=== PATIENT | female | born 1970 | race Caucasian/White ===

== ENCOUNTER 2018-05-19 20:37 | Emergency (ER) | payer OTHER ==
[~2018-05-19] VITALS: Ht 165.1 cm; Wt 68.2 kg
[~2018-05-19 20:37] MED LIST: htn med PO; norco PO; tramadol PO
[2018-05-19] MEDS ORDERED: IBUP-2070 PO (21:09)
[2018-05-19] MEDS ORDERED: GABA-531 PO (21:19)
[2018-05-19] MEDS ORDERED: HYDR25TA PO (21:19)
[2018-05-19] MEDS ORDERED: OMEP20 PO (21:19)
[2018-05-19] MEDS ORDERED: LORA0.5T2 PO (21:19)
[2018-05-19 22:41] VITALS: BP 140/80
== END 2018-05-19 22:54 | disposition home or self-care (01) ==
LOC: EMS 20:38
DX: S62.511A Displaced fracture of proximal phalanx of right thumb, initial encounter for closed fracture (principal); M19.90 Unspecified osteoarthritis, unspecified site; I10 Essential (primary) hypertension; X58.XXXA Exposure to other specified factors, initial encounter; Y93.89 Activity, other specified; Y92.89 Other specified places as the place of occurrence of the external cause; Y99.8 Other external cause status
CPT/HCPCS: 99284